=== PATIENT | male | born 1995 | race Two or more races ===

== ENCOUNTER 2017-07-29 01:53 | Emergency (ER) | payer BC ==
[~2017-07-29] VITALS: Ht 167.6 cm; Wt 72.6 kg
[2017-07-29] MEDS ORDERED: TETANUS-DIPTH-ACEL PERTUSSIS 0.5ML SYRG IM ONE (02:15)
[2017-07-29] MEDS ORDERED: cefTRIAXone 1GM/10ml IVPUSH 10 ML IV ONE (02:15)
[2017-07-29] MEDS ORDERED: SODIUM CHLORIDE 0.9% 1,000 ML IV ONE (02:15)
[2017-07-29 02:27] LABS: Basophils # (auto) 0 uL; Basophils % (auto) 0.3 % (0.0-2.0); Eosinophils # (auto) 0.3 uL; Eosinophils % (auto) 2.1 % (0.0-7.0); Hematocrit 45.1 % (41.0-53.0); Hemoglobin 15.5 g/dL (13.5-17.5); Lymphocytes # (auto) 4.4 uL; Lymphocytes % (auto) 33.3 % (10.0-50.0); Mean Corpuscular Hemoglobin 31.8 pg (28.0-32.0); Mean Corpuscular Hgb Conc. 34.4 g/dL (32.0-36.0); Mean Corpuscular Volume 92.5 fL (80.0-100.0); Monocytes # (auto) 1.2 uL; Monocytes % (auto) 9.3 % (0.0-12.0); Neutrophils # (auto) 7.3 uL; Nucleated Red Blood Cells % 0.1 %; Platelet Count (auto) 329 10^3/uL (140-450); Red Blood Cells 4.88 10^6/uL (4.5-5.90); Red Cell Distribution Width 13.3 % (11.8-14.3); White Blood Cell 13.3 10^3/uL (4.4-10.8)
[2017-07-29] MEDS ORDERED: ONDANSETRON HCL 4 MG/2 ML VIAL IV ONE (02:45)
[2017-07-29] MEDS: HYDROmorphone HCL 2 MG/ML VL IV ONE ×2 (02:45→03:03)
[2017-07-29] MEDS ORDERED: IOHEXOL 350 MG/ML 100ML IJ ONE (02:48)
[2017-07-29 02:51] LABS: Albumin 4.2 g/dL (3.4-5.0); Calcium 8.6 mg/dL (8.5-10.1); Potassium 3.1 mmol/L (3.5-5.1)
[2017-07-29 02:54] LABS: Bilirubin, Total 0.2 mg/dL (0.2-1.0); Total Protein 7.7 g/dL (6.4-8.2)
[2017-07-29] MEDS ORDERED: MORPHINE SULFATE 4 MG/ML SYR/VIAL IV ONE (03:30)
[2017-07-29 05:20] VITALS: BP 118/49
[2017-07-29] MEDS ORDERED: HYDROcodone-ACET 10/325MG TAB PO ONE (05:30)
== END 2017-07-29 05:50 | disposition home or self-care (01) ==
LOC: ER 01:57
DX: S71.101A Unspecified open wound, right thigh, initial encounter (principal); E87.6 Hypokalemia; W34.00XA Accidental discharge from unspecified firearms or gun, initial encounter; Y93.89 Activity, other specified; Y99.8 Other external cause status; Y92.89 Other specified places as the place of occurrence of the external cause
CPT/HCPCS: 36415; 73552; 73706; 80053; 85025; 86850; 86900; 86901; 90471; 90715; 96361; 96374; 96375; 99285; J2270; J2405; Q9967